=== PATIENT | male | born 1965 | race African-American/Black ===

== ENCOUNTER → 2017-06-26 | Outpatient (CLI) | payer OTHER ==
[~2017-06-26] MED LIST: DIVALPROEX SOD500 M1 PO; FOLIC ACID1 MG PO; LEVOXYL200 MCG PO; MELOXICAM15 MG PO; PALIPERIDONE ER9 MG PO; VITAMIN D250000 UNIT PO
--- NOTE | ~2017-06-26 | EKG ---
PATIENT: REJI RIOS UNIT #: [id number] Ventricular Rate: 61 BPM Atrial Rate: 61 BPM P-R Interval: 154 ms QRS Duration: 112 ms Q-T Interval: 392 ms QTC Calculation(Bezet): 394 ms P [place]: 66 degrees Calculated R [place]: 60 degrees Calculated T [place]: 68 degrees Diagnosis Line: Normal sinus rhythm Diagnosis Line: Nonspecific T wave abnormality Diagnosis Line: Borderline ECG Diagnosis Line: No previous ECGs available Diagnosis Line: Confirmed by TANIKA ERVIN MD ([id number]) on 06/27/2017 Diagnosis Line: 7:15:34 PM INTERPRETING MD: AZIZA MEYER
[2017-06-26 14:09] LABS: CALCIUM SERUM 8.7 mg/dL (8.4-10.2); CREATININE SERUM 1.5 mg/dL (0.6-1.4); GLOM FILT RATE Estimated 61.2 mL/min (>60); POTASSIUM 3.8 mmol/L (3.5-5.1)
== END | disposition home or self-care (01) ==
LOC: CAMB 11:53 → EDSTATUS 13:00 → CAMB 13:00
PROVIDERS: Surgery
DX: Z01.818 Encounter for other preprocedural examination (principal); R94.39 Abnormal result of other cardiovascular function study
CPT/HCPCS: 36415; 80048; 93005

== ENCOUNTER → 2017-07-04 | Day surgery (SDC) | payer OTHER ==
--- NOTE | ~2017-07-04 | OR ---
Unit #: [id number] #: [id number] Patient: REJI RIOS [id number] [address] [address] [id number] O MR#: [id number] NAME: REJI RIOS ROOM: Date of Procedure: 07/04/2017 Admission Date: 07/04/2017 Surgeon: Jacques Durham M.D. : 1965 Attending Physician: Jacques Durham M.D. OPERATIVE REPORT PREOPERATIVE DIAGNOSIS Lymphadenopathy, left axilla. POSTOPERATIVE DIAGNOSIS Lymphadenopathy, left axilla. PROCEDURE PERFORMED Needle localization and excisional biopsy of enlarged node, left axilla. ANESTHESIA General LMA anesthesia with 0.5% Marcaine plain local anesthesia. FINDINGS Several enlarged lymph nodes that were clumped together were excised and sent to pathology fresh. SPECIMENS Sent to pathology. COMPLICATIONS None apparent. CONDITION The patient tolerated the procedure well. INDICATIONS FOR PROCEDURE The patient is a 50-year-old black male, who was found recently to have extensive mediastinal abdominal and axillary lymphadenopathy bilaterally. The patient had a needle biopsy performed which was nondiagnostic. He presents at this time for excisional biopsy of an enlarged business development representative node. DESCRIPTION OF PROCEDURE After obtaining informed consent as well as receiving preoperative antibiotics and SCDs, the patient who previously today had undergone needle localization of an enlarged node of the left axilla. He was brought to the operating room and after adequate general LMA anesthesia was obtained, had his left axilla prepped and draped in a sterile fashion. A curvilinear incision was made with a knife. It was taken down through the skin and through the subcutaneous tissues with a knife and with electrocautery to the axillary contents. The wire was followed down to an Unit #: [id number] #: [id number] Patient: REJI RIOS enlarged lymph node. There was actually 2 or 3 large lymph nodes clumped together. They were circumferentially excised with electrocautery as well as hemostats and 3-0 Vicryl ties. The specimen was sent fresh to pathology. The wound was copiously irrigated. Good hemostasis was obtained with the Bovie. All areas were infiltrated with 0.5% Marcaine plain local anesthesia. The deep tissues were reapproximated with interrupted 3-0 Vicryl suture. The subdermal tissues were reapproximated with interrupted 3-0 Vicryl suture and the skin was closed with a 4-0 Vicryl subcuticular stitch. Benzoin and Steri-Strips were applied over the wound in an occlusive manner followed by a dry dressing and a Tegaderm dressing. Needle counts, sponge counts, and instrument counts were all correct as reported by the scrub nurse x2. The patient went from the operating room to recovery room in stable condition. Dictated by... Wilmer Chung/arcelia TD: 07/05/2017 07:35 JOB #: [id number] CC: [facility] Wilmer Cates M.D. OPERATIVE REPORT Page 1 of 1 X Jacques Durham MD X PROCEDURE OPERATIVE NOTE
--- NOTE | ~2017-07-04 | US202 ---
[facility] A Service of [facility] & [facility] RADIOLOGY TEXT RESULTS PATIENT: REJI RIOS LOCATION: [facility] : [birth year] UNIT #: [id number] AGE: [address]: Jacques Durham MD SEX: M ORDER DR: [id number] [facility] [address] [place], [place] [address] [id number] O MR#: [id number] Acc #: [id number] NAME: REJI RIOS : 1965 SEX: M STUDY DATE/TIME: 07/04/2017 7:57 UNIT: [facility] ROOM: STUDY DESCRIPTION: US Breast Guided Ndl Loc 1st Attending Physician: Jacques Durham M.D. Ordering Physician: Jacques Durham M.D. MEDICAL IMAGING REPORT This report is preliminary unless electronic signature is present EXAM 1. Needle wire localization, left axilla. 2. Ultrasound guidance for needle placement. INDICATION 52-year-old male with left axillary adenopathy. Needle wire localization of the most abnormal left axillary lymph node was requested prior to surgical excisional biopsy today. COMPARISON Outside CT of the cervical spine and CT of the chest dated February 13, 2017 and January 05, 2017 performed at [facility], [place], [place], as well as outside left axillary ultrasound dated February 13, 2017. FINDINGS Written, informed consent was obtained, including a discussion of risks, benefits, and alternatives. Time-out was performed confirming correct patient, date of , procedure and procedure site. Preliminary ultrasound confirms that there is left axillary adenopathy. The most abnormal lymph node was chosen for needle wire localization today. Overlying skin was prepped and draped in the usual sterile fashion and buffered lidocaine was used for local anesthesia. In particular, there is an abnormal lobular lymph node with loss of fatty hilum measuring 3.2 cm x 2.2 cm x 2.6 cm which was chosen for localization today. After prepping and draping the skin in the usual sterile fashion, buffered lidocaine was used for localization anesthesia followed by placement of 7 cm Kopans needle through the lymph node of interest. The wire was advanced through the needle and the needle was then removed. Repeat ultrasound confirmed placement of the wire through the lymph node at the end of the procedure. The patient tolerated the procedure well and the wire was secured prior to transport. [facility] A Service of [facility] & [facility] RADIOLOGY TEXT RESULTS PATIENT: REJI RIOS LOCATION: [facility] : [birth year] UNIT #: [id number] AGE: [address]: Jacques Durham MD SEX: M ORDER DR: Successful wire needle localization of the most abnormal left axillary lymph node. Dictated by... Aaron Parker M.D. THIS IS AN ELECTRONICALLY VERIFIED REPORT Aaron Parker M.D. at 07/10/2017 2:28 PM MITCH/arnav TD: 07/04/2017 23:20 JOB #: [id number] MEDICAL IMAGING REPORT Page 1 of 1 COPY
== END | disposition home or self-care (01) ==
LOC: CWCC 06:55 → CSUR 06:55 → CWCC 08:00 → CSUR 10:30
PROVIDERS: Surgery
DX: R59.0 Localized enlarged lymph nodes (principal); J43.9 Emphysema, unspecified; E03.9 Hypothyroidism, unspecified; F17.210 Nicotine dependence, cigarettes, uncomplicated; M19.90 Unspecified osteoarthritis, unspecified site; Z86.73 Personal history of transient ischemic attack (TIA), and cerebral infarction without residual deficits; Z88.8 Allergy status to other drugs, medicaments and biological substances; Z79.899 Other long term (current) drug therapy
CPT/HCPCS: 87070; 87075; 87102; 87116; 87205; 87206; 88305; J0690; J1170; J2250; J3010